=== PATIENT | female | born 2000 | race Two or more races ===

== ENCOUNTER 2020-12-04 10:27 | Outpatient (REF) | payer MEDICARE, MEDICAID, SELFPAY ==
--- NOTE | 2020-12-04 | US_ITS ---
EXAMINATION: US DIAGNOSTIC ULTRASOUND BREAST, LEFT CLINICAL INFORMATION: [place] sized nodule palpated by by patient for one week deep 9:00 retroareolar left breast. No discharge. Family history breast cancer in grandmother. Age 22. No prior breast imaging. COMPARISON: None. TECHNIQUE: Ultrasound left breast is targeted to the retroareolar and periareolar region using grayscale imaging and color Doppler without and with harmonics. Real-time comparison imaging performed retroareolar contralateral right breast. FINDINGS: There is no focal suspicious finding. There is no cystic or solid mass, architectural abnormality, duct ectasia, or edema in the soft tissue planes. Incidental convergence of ducts seen just beneath the left nipple measuring 6 mm in diameter. No intraductal mass or color flow. Results are discussed with the patient at time of visit. Patient should be managed based on the clinical impression. If clinically indicated, further evaluation may be considered with surgical consult. Decision to proceed with biopsy should be based on clinical grounds and degree of clinical concern. US/US breast LT limited IMPRESSION: No mass or architectural abnormality. ASSESSMENT: BI-RADS 2: Benign RECOMMENDATION: Patient should be managed based on the clinical impression. If clinically indicated, further evaluation may be considered with surgical consult. Decision to proceed with biopsy should be based on clinical grounds and degree of clinical concern.
== END 2020-12-04 10:28 | disposition home or self-care (01) ==
LOC: HO.MAMMO 10:27
PROVIDERS: PCP Internal Medicine; Visit Provider Internal Medicine
DX: N63.20 Unspecified lump in the left breast, unspecified quadrant (principal); Z80.3 Family history of malignant neoplasm of breast
CPT/HCPCS: 76642

== ENCOUNTER → 2021-08-20 13:54 | Outpatient (BNVA) | payer MEDICARE, MEDICAID, SELFPAY | PROVIDERS: Visit Provider Advanced Practice Midwife | DX: Z32.01 Encounter for pregnancy test, result positive (principal) | CPT/HCPCS: 99202 ==

== ENCOUNTER 2021-08-23 13:20 | Outpatient (REF) | payer MEDICARE, MEDICAID, SELFPAY ==
--- NOTE | ~2021-08-23 | US_ITS ---
EXAMINATION: OBSTETRICAL ULTRASOUND, FIRST TRIMESTER HISTORY: 21-year-old with on certain LMP LMP: Unknown COMPARISON: None TECHNIQUE: Real time transabdominal imaging with color and M-mode Doppler. FINDINGS: A single, live IUP CRL of 3.7 mm c/w 6.1wks is noted. Heart Rate: 116 beats per minute. Yolk sac seen Both maternal ovaries are seen and appear normal. GESTATIONAL AGE: 1. GA from LMP: N/A wks 2. GA from AUA: 6.1 wks ESTIMATED DATE OF DELIVERY: 1. MELCHOR from LMP: N/A 2. MELCHOR from AUA: 04/17/2022 US/US OB pelvic and transvaginal IMPRESSION: 1. A single live IUP 2. CRL corresponding to 6.1 weeks, during her an MELCHOR of 04/17/2022. This note was generated with a voice recognition program. Please excuse any errors which may have been overlooked during my review of this note. Sometimes these errors may affect the content or meaning of a given sentence.
== END 2021-08-23 13:21 | disposition home or self-care (01) ==
LOC: HO.US 13:20
PROVIDERS: Visit Provider Advanced Practice Midwife
DX: Z34.91 Encounter for supervision of normal pregnancy, unspecified, first trimester (principal)
CPT/HCPCS: 76801; 76817

== ENCOUNTER 2021-09-18 10:21 | Outpatient (REF) | payer MEDICARE, MEDICAID, SELFPAY | END 2021-09-18 10:22 | disposition home or self-care (01) | LOC: HO.LAB 10:21 | PROVIDERS: Visit Provider Advanced Practice Midwife | DX: Z34.81 Encounter for supervision of other normal pregnancy, first trimester (principal) | CPT/HCPCS: 99212 ==

== ENCOUNTER 2021-09-27 12:59 | Outpatient (REF) | payer MEDICARE, MEDICAID, SELFPAY ==
--- NOTE | ~2021-09-27 | US_ITS ---
EXAMINATION: OBSTETRICAL ULTRASOUND, FIRST TRIMESTER HISTORY: A 21-year-old at 11.1 weeks of gestation NT screening COMPARISON: 08/23/2021 TECHNIQUE: Real time transabdominal imaging with color and M-mode Doppler. FINDINGS: A single, live IUP CRL of 45.7 mm c/w 11.3wks is noted. Heart Rate: 172 beats per minute. Normal yolk sac seen. NT was 1.25.mm. NB Present The embryo appears sonographically wnl for this GA. Both maternal ovaries are seen and appear normal. GESTATIONAL AGE: 1. Established GA: 11.1 wks 2. GA from AUA: 11.3 wks ESTIMATED DATE OF DELIVERY: 1. Established MELCHOR: 04/17/2022 2. MELCHOR from AUA: 04/15/2022 US/US OB 1T nuc measure IMPRESSION: 1. A single live IUP 2. Size equals dates 3. NT of 1.25 mm MFM Consultation: I reviewed the ultrasound findings along with significance of NT measurement. The NT of less than 3mm is generally reassuring. However, the sensitivity for T21 detection is only 60%. I reviewed the availability of serum aneuploidy screening which includes cell-free DNA and placental protein based tests. I discussed the sensitivity, false-positive rate, and other limitations associated with each test. I also reviewed the availability of invasive diagnostic tests that are associated small but definite risk of miscarriage. We also reviewed the differences between screening tests and diagnostic tests. After our discussion, she opted for the First trimester screening that is based on cell-free DNA or non-invasive testing (NIPT). The result will be faxed to your office in approximately 7 days. A follow up at 18 weeks for survey has been scheduled. Thank you very much for this referral. Total time 30 minutes. The time spent was devoted to counseling the patient about the disease and diagnosis, coordinating care including reviewing her records, pertinent lab data and studies, as well as discussing diagnostic evaluation and workup, plan therapeutic interventions and future disposition of care. This includes any additional research needed to obtain further information in formulating the plan of care of this patient. This note was generated with a voice recognition program. Please excuse any errors which may have been overlooked during my review of this note. Sometimes these errors may affect the content or meaning of a given sentence.
== END 2021-09-27 13:00 | disposition home or self-care (01) ==
LOC: HO.US 12:59
PROVIDERS: Visit Provider Advanced Practice Midwife
DX: Z34.91 Encounter for supervision of normal pregnancy, unspecified, first trimester (principal); Z3A.11 11 weeks gestation of pregnancy
CPT/HCPCS: 76813

== ENCOUNTER 2021-10-01 10:20 | Outpatient (REF) | payer MEDICARE, MEDICAID, SELFPAY ==
[2021-10-02 14:30] LABS: CT PCR NOT DETECTED (Not Detect.); NG PCR NOT DETECTED (Not Detect.)
[2021-10-03 09:41] LABS: BV Int Neg Control Negative (Negative); BV Int Pos Control Positive (Positive)
== END 2021-10-01 10:21 | disposition home or self-care (01) ==
LOC: HO.LAB 10:20
PROVIDERS: Visit Provider Advanced Practice Midwife
DX: Z01.419 Encounter for gynecological examination (general) (routine) without abnormal findings (principal); O92.29 Other disorders of breast associated with pregnancy and the puerperium; O99.619 Diseases of the digestive system complicating pregnancy, unspecified trimester; L73.2 Hidradenitis suppurativa; K59.00 Constipation, unspecified; Z20.2 Contact with and (suspected) exposure to infections with a predominantly sexual mode of transmission
CPT/HCPCS: 81003; 87480; 87491; 87510; 87591; 87660; 88142; 99212

== ENCOUNTER → 2021-10-03 14:38 | Outpatient (BNVA) | payer MEDICARE, MEDICAID, SELFPAY | PROVIDERS: Visit Provider Surgery | DX: O91.211 Nonpurulent mastitis associated with pregnancy, first trimester (principal); Z3A.12 12 weeks gestation of pregnancy; Z82.49 Family history of ischemic heart disease and other diseases of the circulatory system | CPT/HCPCS: 99202 ==

== ENCOUNTER 2021-10-29 | Outpatient (REF) | payer MEDICARE, MEDICAID, SELFPAY | END 2021-10-29 00:01 | LOC: CF | PROVIDERS: Visit Provider Advanced Practice Midwife | DX: O26.02 Excessive weight gain in pregnancy, second trimester (principal); Z3A.15 15 weeks gestation of pregnancy | CPT/HCPCS: 99212 ==

== ENCOUNTER 2021-11-18 14:11 | Emergency (ER) | payer MEDICARE, MEDICAID, SELFPAY ==
[2021-11-18 15:23] VITALS: BP 119/71; PULSE 80; RESP 16; TEMP 36.7; O2SAT 99; BMI 37.5
[2021-11-18 16:14] LABS: COVID-19 Test Negative (Negative); IDNOW Serial# 9DD0AD1C
== END 2021-11-18 21:33 | disposition left against medical advice (07) ==
PROVIDERS: Emergency Provider Emergency Medicine; PCP Internal Medicine
DX: O26.892 Other specified pregnancy related conditions, second trimester (principal); R51.9 Headache, unspecified; Z3A.18 18 weeks gestation of pregnancy; Z20.822 Contact with and (suspected) exposure to COVID-19
CPT/HCPCS: 36415; 87635; 99281; 99283

== ENCOUNTER 2021-11-22 12:41 | Outpatient (REF) | payer MEDICARE, MEDICAID, SELFPAY ==
--- NOTE | ~2021-11-22 | US_ITS ---
EXAMINATION: US OBSTETRICAL CLINICAL INFORMATION: 21-year-old at 19.1 weeks of gestation Screening for anomaly High BMI COMPARISON: 09/27/2021 TECHNIQUE: Real-time transabdominal ultrasound was performed using C1-5 megahertz transducer. FINDINGS: A single, active, fetus is seen in vertex presentation. The placenta is anterior without previa, and the amniotic fluid volume is wnl. MEASUREMENTS: 1. Biparietal Diameter: 4.6 cm; 19.6 wks 2. Occipital Frontal Diameter: 5.95 cm 3. Head Circumference: 16.9 cm; 19.5 wks 4. Abdominal Circumference: 14.1 cm; 19.4 wks 5. Femur Length: 3.1 cm; 19.6 wks 6. Humerus Length: 2.9 cm; 19.3 wks 7. Tibia Length: 2.7 cm; 19.6 wks 8. Ulna Length: 2.6 cm; 19.4 wks 9. Lateral ventricle: 0.6 cm 10. Cerebellum: 1.85 cm; 19.2 wks 11. Cisterna Magna: 0.5 cm 12. Nuchal Fold: 4.4 mm 13. Heart Rate: 150 beats per minute Rt ovary: normal Lt ovary: normal Cervical length 4.3 cm on T/A. GESTATIONAL AGE: 1. Established GA: 19.1 wks 2. GA from [facility]: 19.6 wks ESTIMATED DATE OF DELIVERY: 1. Established MELCHOR: 04/17/2022 2. MELCHOR from [facility]: 04/12/2022 ANATOMY: The visualized anatomy includes but not limited to: 1. Cranium: Normal 2. Intracranial anatomy: cavum septum pellucidi, lateral ventricles, choroid plexus, cerebellum, posterior fossa, third and fourth ventricles. 3. face: orbits, lip/palate, profile, nasal bone 4. Heart: four-chamber view of the heart, ventricular septum, foramen ovale, pulmonary vein, left and right outflow tracts, three-vessel view, 3 vessel trachea view, aortic and ductal arches, situs.. 5. Diaphragm: Normal 6. Abdominal wall: Normal 7. Cord Insertion: Normal 8. Spine: Cervical, thoracic, lumbar, sacral. 9. Stomach: Normal size and shape 10. Right Kidney: Normal 11. Left Kidney: Normal 12. 3 vessel cord: Normal 13. Upper extremity: Open hands, fifth digit. 14. Lower extremity: Tibia, fibula, bilateral feet. 15. Bladder: Normal 16. Genitalia: Male, patient aware US/US OB /maternal detail IMPRESSION: 1. Single, living, intrauterine with appropriate biometry. 2. Normal survey DISCUSSION: I reviewed today's ultrasound findings. We discussed the limitations of ultrasound in diagnosing aneuploidy and other congenital abnormalities. I reviewed the differences between screening test and diagnostic test. Amniocentesis was discussed and declined. She was informed that the baseline incidence of congenital abnormalities is approximately 3-5%. Not all these conditions are diagnosable in utero. RECOMMENDATIONS: 1. Follow-up when necessary Thank you for allowing me to participate in her care. Total time 30 minutes. The time spent was devoted to counseling the patient about the disease and diagnosis, coordinating care including reviewing her records, pertinent lab data and studies, as well as discussing diagnostic evaluation and workup, plan therapeutic interventions and future disposition of care. This includes any additional research needed to obtain further information in formulating the plan of care of this patient. This note was generated with a voice recognition program. Please excuse any errors which may have been overlooked during my review of this note. Sometimes these errors may affect the content or meaning of a given sentence.
== END 2021-11-22 12:42 | disposition home or self-care (01) ==
LOC: HO.US 12:41
PROVIDERS: Visit Provider Advanced Practice Midwife
DX: Z34.92 Encounter for supervision of normal pregnancy, unspecified, second trimester (principal)
CPT/HCPCS: 76811

== ENCOUNTER 2021-12-31 10:28 | Outpatient (REF) | payer MEDICARE, MEDICAID, SELFPAY ==
[2021-12-31 12:58] LABS: Hematocrit 34.1 % (37.0-47.0); Hemoglobin 11.1 g/dl (12.0-16.0); Mean Corpuscular HGB Conc 32.6 g/dl (31.0-35.0); Mean Corpuscular Hemoglobin 32.1 pg (27.0-33.0); Mean Corpuscular Volume 98.6 fL (80.0-98.0); Mean Platelet Volume 11.8 fL (9.4-12.3); Platelet Count 198 X10*3/uL (160-400); Red Blood Count 3.46 X10*6/uL (4.20-5.50); Red Cell Distribution Width 12.5 % (11.0-16.0); White Blood Count 10.1 X10*3/uL (4.8-10.8)
[2021-12-31 13:13] LABS: Glucose 1 Hour PP 50gm Dose 88 mg/dL (60-140)
[2021-12-31 13:17] LABS: Amphetamine Screen Urine Not Detected (Not Detect); Barbiturates, Urine Not Detected (Not Detect); Benzodiazepines Screen Urine Not Detected (Not Detect); Cannabinoid Screen Urine Not Detected (Not Detect); Cocaine Screen Urine Not Detected (Not Detect); Fentanyl, urine Not Detected (Not Detect); Opiate Screen Urine Not Detected (Not Detect); Phencyclidine Screen Urine Not Detected (Not Detect)
[2022-01-01 03:48] LABS: HIV AB/AG Nonreactive (Nonreactive); HIV Num 1 0.08 S/CO (0.00-0.99); Syphilis Screen Nonreactive (Nonreactive)
[2022-01-01 04:02] LABS: HBsAGNum1 0.19 S/CO (0.00-0.99); Hepatitis B Surface Antigen Negative (Negative); ~Hepatitis C Antibody Nonreactive (Nonreactive)
[2022-01-02 01:11] LABS: Rubella IgG Antibody 4.87 Index
[2022-01-02 01:46] LABS: Varicella IgG Antibody <135.00 index
== END 2021-12-31 10:29 | disposition home or self-care (01) ==
LOC: HO.LAB 10:28
PROVIDERS: PCP Internal Medicine; Visit Provider Advanced Practice Midwife
DX: Z34.92 Encounter for supervision of normal pregnancy, unspecified, second trimester (principal); Z3A.24 24 weeks gestation of pregnancy
CPT/HCPCS: 80307; 85027; 86762; 86780; 86787; 86803; 86850; 86900; 86901; 87086; 87340; 87389; 99212

== ENCOUNTER → 2022-01-28 13:43 | Outpatient (BNVA) | payer MEDICARE, MEDICAID, SELFPAY | PROVIDERS: PCP Internal Medicine; Visit Provider Obstetrics & Gynecology | DX: Z34.83 Encounter for supervision of other normal pregnancy, third trimester (principal) | CPT/HCPCS: 99212 ==

== ENCOUNTER → 2022-03-07 10:49 | Outpatient (BNVA) | payer MEDICARE, MEDICAID, SELFPAY | PROVIDERS: Visit Provider Advanced Practice Midwife | DX: Z13.89 Encounter for screening for other disorder (principal) | CPT/HCPCS: 81003; 99212 ==

== ENCOUNTER 2022-03-07 12:27 | Outpatient (REF) | payer MEDICARE, MEDICAID, SELFPAY ==
--- NOTE | ~2022-03-07 | US_ITS ---
EXAMINATION: OBSTETRICAL ULTRASOUND, Follow up HISTORY: 21-year-old at the 34.1 weeks of gestation Size date discrepancy High BMI COMPARISON: 11/22/2021 TECHNIQUE: Real time transabdominal imaging with color and M-mode Doppler. PRESENTATION: Vertex PLACENTA LOCATION: Anterior without previa AMNIOTIC FLUID: KRYSTLE 13.7 cm 143 MEASUREMENTS: 1. Biparietal Diameter: 8.7 cm; 35.0 wks 2. Head Circumference: 32.1 cm; 36.2 wks 3. Abdominal Circumference: 30.3 cm; 34.3 wks 4. Femur Length: 6.6 cm; 34.1 wks 5. Heart Rate: 143 beats per minute WEIGHT: EFW: 2437 grams (5 lbs 6 oz) -- 54 %. BIOPHYSICAL PROFILE: Motion: 2 Tone: 2 Breathin Amniotic Fluid: 2 Total score: 8/8 GESTATIONAL AGE: 1. Established GA: 34.1 wks 2. GA from AUA: 35.0 wks ESTIMATED DATE OF DELIVERY: 1. Established MELCHOR: 04/17/2022 2. MELCHOR from AUA: 04/11/2022 US/US OB follow up IMPRESSION: 1. A single active fetus is in vertex presentation 2. Size equals dates 3. Reassuring BPP and KRYSTLE Thank you very much for this referral. This note was generated with a voice recognition program. Please excuse any errors which may have been overlooked during my review of this note. Sometimes these errors may affect the content or meaning of a given sentence.
== END 2022-03-07 12:28 | disposition home or self-care (01) ==
LOC: HO.XRAY 12:27
PROVIDERS: PCP Internal Medicine; Visit Provider Advanced Practice Midwife
DX: O99.213 Obesity complicating pregnancy, third trimester (principal); O99.013 Anemia complicating pregnancy, third trimester; O36.63X0 Maternal care for excessive fetal growth, third trimester, not applicable or unspecified; Z3A.34 34 weeks gestation of pregnancy
CPT/HCPCS: 76816; 81003; 99212

== ENCOUNTER → 2022-03-11 10:02 | Outpatient (BNVA) | payer MEDICARE, MEDICAID, SELFPAY | PROVIDERS: PCP Internal Medicine; Visit Provider Advanced Practice Midwife | DX: O99.213 Obesity complicating pregnancy, third trimester (principal); E66.01 Morbid (severe) obesity due to excess calories; O47.03 False labor before 37 completed weeks of gestation, third trimester; Z3A.34 34 weeks gestation of pregnancy | CPT/HCPCS: 59025; 81003; 99212 ==

== ENCOUNTER 2022-03-14 09:04 | Outpatient (REF) | payer MEDICARE, MEDICAID, SELFPAY ==
--- NOTE | ~2022-03-14 | US_ITS ---
EXAMINATION: US OBSTETRICAL (BIOPHYSICAL PROFILE) CLINICAL INFORMATION: 21-year-old at the 35.1 weeks of gestation High BMI COMPARISON: 03/07/2022 TECHNIQUE: Biophysical profile is performed over 30 minutes with assessment of breathing, gross body movement, tone, and qualitative amniotic fluid volume. FINDINGS: POSITION: Cephalic PLACENTA: Anterior without previa AMNIOTIC FLUID INDEX: 8.8 cm CARDIAC ACTIVITY: 150 beats per minute BIOPHYSICAL PROFILE: Motion: 2 Tone: 2 Breathin Amniotic Fluid: 2 The total biophysical score is 8/8 US/US OB biophysical profile IMPRESSION: 1. Single intrauterine gestation in vertex position. 2. Reassuring BPP and KRYSTLE Thank you for allowing me to participate in her care. This note was generated with a voice recognition program. Please excuse any errors which may have been overlooked during my review of this note. Sometimes these errors may affect the content or meaning of a given sentence.
== END 2022-03-14 09:05 | disposition home or self-care (01) ==
LOC: HO.US 09:04
PROVIDERS: Visit Provider Advanced Practice Midwife
DX: O99.213 Obesity complicating pregnancy, third trimester (principal); E66.01 Morbid (severe) obesity due to excess calories; Z3A.35 35 weeks gestation of pregnancy
CPT/HCPCS: 76819

== ENCOUNTER 2022-03-21 11:13 | Outpatient (REF) | payer MEDICARE, MEDICAID, SELFPAY ==
[2022-03-21 17:21] LABS: CT PCR NOT DETECTED (Not Detect.); NG PCR NOT DETECTED (Not Detect.)
== END 2022-03-21 11:14 | disposition home or self-care (01) ==
LOC: HO.LAB 11:13
PROVIDERS: Advanced Practice Midwife; PCP Internal Medicine; Visit Provider Obstetrics & Gynecology
DX: O99.820 Streptococcus B carrier state complicating pregnancy (principal); O99.213 Obesity complicating pregnancy, third trimester; E66.01 Morbid (severe) obesity due to excess calories; Z3A.36 36 weeks gestation of pregnancy
CPT/HCPCS: 87081; 87491; 87591; 99212

== ENCOUNTER 2022-03-28 10:08 | Outpatient (REF) | payer MEDICARE, MEDICAID, SELFPAY ==
--- NOTE | ~2022-03-28 | US_ITS ---
EXAMINATION: OBSTETRICAL ULTRASOUND, Follow up HISTORY: 21 year [id number] at the 37.1 weeks of gestation Size date discrepancy High BMI COMPARISON: 03/14/2022 TECHNIQUE: Real time transabdominal imaging with color and M-mode Doppler. PRESENTATION: Vertex PLACENTA LOCATION: Anterior without previa AMNIOTIC FLUID: KRYSTLE 12.6 cm MEASUREMENTS: 1. Biparietal Diameter: 9.4 cm; 38.2 wks 2. Head Circumference: 33.7 cm; 38.5 wks 3. Abdominal Circumference: 32.4 cm; 36.3 wks 4. Femur Length: 6.8 cm; 35.1 wks 5. Heart Rate: 139 beats per minute WEIGHT: EFW: 2940 grams (6 lbs 8 oz) -- 38 %. BIOPHYSICAL PROFILE: Motion: 2 Tone: 2 Breathin Amniotic Fluid: 2 Total score: 8/8 GESTATIONAL AGE: 1. Established GA: 37.1 wks 2. GA from AUA: 37.1 wks ESTIMATED DATE OF DELIVERY: 1. Established MELCHOR: 04/17/2022 2. MELCHOR from AUA: 04/17/2022 US/US OB biophysical profile IMPRESSION: 1. A single active fetus is in vertex presentation 2. Size equals dates 3. Normal KRYSTLE and reassuring BPP Thank you very much for this referral. This note was generated with a voice recognition program. Please excuse any errors which may have been overlooked during my review of this note. Sometimes these errors may affect the content or meaning of a given sentence.
== END 2022-03-28 10:09 | disposition home or self-care (01) ==
LOC: HO.US 10:08
PROVIDERS: Visit Provider Advanced Practice Midwife
DX: O26.00 Excessive weight gain in pregnancy, unspecified trimester (principal); E66.01 Morbid (severe) obesity due to excess calories; Z68.41 Body mass index [BMI] 40.0-44.9, adult
CPT/HCPCS: 76819

== ENCOUNTER → 2022-04-01 12:46 | Outpatient (BNVA) | payer MEDICARE, MEDICAID, SELFPAY | PROVIDERS: PCP Internal Medicine; Visit Provider Advanced Practice Midwife | DX: O99.213 Obesity complicating pregnancy, third trimester (principal); E66.01 Morbid (severe) obesity due to excess calories; Z3A.37 37 weeks gestation of pregnancy | CPT/HCPCS: 59025; 90471; 90715; 99212 ==

== ENCOUNTER 2022-04-04 11:42 | Outpatient (REF) | payer MEDICARE, MEDICAID, SELFPAY ==
--- NOTE | ~2022-04-04 | US_ITS ---
EXAMINATION: US OBSTETRICAL (BIOPHYSICAL PROFILE) CLINICAL INFORMATION: 21-year-old at 38.1 weeks of gestation High BMI COMPARISON: 03/28/2022 TECHNIQUE: Biophysical profile is performed over 30 minutes with assessment of breathing, gross body movement, tone, and qualitative amniotic fluid volume. FINDINGS: POSITION: Cephalic PLACENTA: Anterior without previa AMNIOTIC FLUID INDEX: 13 cm CARDIAC ACTIVITY: 153 beats per minute BIOPHYSICAL PROFILE: Motion: 2 Tone: 2 Breathin Amniotic Fluid: 2 The total biophysical score is 8/8 US/US OB biophysical profile IMPRESSION: 1. Single intrauterine gestation in vertex position. 2. Reassuring BPP and KRYSTLE Thank you for allowing me to participate in her care. This note was generated with a voice recognition program. Please excuse any errors which may have been overlooked during my review of this note. Sometimes these errors may affect the content or meaning of a given sentence.
== END 2022-04-04 11:43 | disposition home or self-care (01) ==
LOC: HO.US 11:42
PROVIDERS: Visit Provider Advanced Practice Midwife
DX: O99.213 Obesity complicating pregnancy, third trimester (principal); E66.01 Morbid (severe) obesity due to excess calories; Z3A.38 38 weeks gestation of pregnancy
CPT/HCPCS: 76819

== ENCOUNTER → 2022-04-08 13:04 | Outpatient (BNVA) | payer MEDICARE, MEDICAID, SELFPAY | PROVIDERS: PCP Internal Medicine; Visit Provider Advanced Practice Midwife | DX: O99.213 Obesity complicating pregnancy, third trimester (principal); E66.01 Morbid (severe) obesity due to excess calories; Z3A.38 38 weeks gestation of pregnancy | CPT/HCPCS: 59025; 99212 ==

== ENCOUNTER → 2022-04-09 10:40 | Outpatient (BNVA) | payer MEDICARE, MEDICAID, SELFPAY | PROVIDERS: Visit Provider Advanced Practice Midwife | DX: O99.213 Obesity complicating pregnancy, third trimester (principal); E66.01 Morbid (severe) obesity due to excess calories; Z3A.38 38 weeks gestation of pregnancy | CPT/HCPCS: 99212 ==

== ENCOUNTER 2022-04-11 12:56 | Outpatient (REF) | payer MEDICARE, MEDICAID, SELFPAY ==
--- NOTE | ~2022-04-11 | US_ITS ---
EXAMINATION: US OBSTETRICAL (BIOPHYSICAL PROFILE) CLINICAL INFORMATION: Morbid obesity. COMPARISON: Ultrasound OB 04/04/2022. TECHNIQUE: Ultrasound of the pelvis is performed. Biophysical profile is performed over 30 minutes with assessment of breathing, gross body movement, tone, and qualitative amniotic fluid volume. Each matrix is scored 0 or 2, depending if the metric is present. Maximum total score possible is 8. Examination is not intended to assess for anomalies. FINDINGS: POSITION: Vertex. PLACENTA: Anterior. AMNIOTIC FLUID INDEX: 16.2 cm CARDIAC ACTIVITY: 144 beats per minute BIOPHYSICAL PROFILE: Motion: 2 Tone: 2 Breathin Amniotic Fluid: 2 Total score: 8 ANATOMY: There is visualization of bilateral kidneys, ureter and bladder, stomach and a four-chamber heart. US/US OB biophysical profile IMPRESSION: 1. Single intrauterine gestation in vertex position with anterior placenta. 2. Total biophysical score is 8 (scale 0-8). 3. Amniotic fluid index 16.2 cm. 4. cardiac activity 144 beats per minute. No major change from the last exam 04/04/2022.
== END 2022-04-11 12:57 | disposition home or self-care (01) ==
LOC: HO.US 12:56
PROVIDERS: Visit Provider Advanced Practice Midwife
DX: E66.01 Morbid (severe) obesity due to excess calories (principal); Z68.41 Body mass index [BMI] 40.0-44.9, adult
CPT/HCPCS: 76819

== ENCOUNTER 2022-07-31 12:09 | Emergency (ER) | payer MEDICARE, MEDICAID, SELFPAY | END 2022-07-31 14:17 | disposition left against medical advice (07) | PROVIDERS: Emergency Provider Emergency Medicine | DX: N64.4 Mastodynia (principal) ==

== ENCOUNTER 2022-08-03 06:48 | Emergency (ER) | payer OTHER, SELFPAY ==
--- NOTE | ~2022-08-03 | CT_ITS ---
EXAMINATION: CT ABDOMEN AND PELVIS WITH CONTRAST CLINICAL INFORMATION: The upper quadrant pain. Status post surgery. Restaging stone? Abscess? COMPARISON: None TECHNIQUE: Multidetector volumetric images were obtained from the superior aspect of the liver through the pubic symphysis following administration 85 mL of Omnipaque 350 intravenous contrast. Sagittal and coronal reformatted images were obtained on the technologist's workstation. Oral contrast: No This CT examination was performed using dose optimization techniques as appropriate, variously including the following: *Automated exposure control *Adjustment of mA and/or kV according to patient size (this includes techniques or standardized protocols for targeted exams where dose is matched to indication/reason for exam; i.e. extremities or head) *Use of iterative reconstruction technique DLP: 1108 mGy-cm FINDINGS: LUNG BASES: The visualized lung bases are unremarkable. LIVER, GALLBLADDER, AND BILIARY TREE: The liver is normal in size, shape, and attenuation. No focal hepatic lesion or biliary ductal dilatation is present. Gallbladder not seen, presumably surgically absent. No biliary ductal dilatation. Common bile duct normal in caliber with no choledocholithiasis seen. PANCREAS: Unremarkable. SPLEEN: Unremarkable. ADRENAL GLANDS: Unremarkable. KIDNEYS AND URETERS: The kidneys are normal in size, shape, and attenuation. No hydronephrosis, hydroureter, or calculi seen. No perinephric stranding. BLADDER: Unremarkable. GASTROINTESTINAL TRACT: The small and large bowel are unremarkable. The appendix is unremarkable. ABDOMINAL WALL: There is diastases of the rectus abdominis with a small fat-containing umbilical hernia. LYMPH NODES: Normal sized retroperitoneal and right lower quadrant lymph nodes are present. No pathologically enlarged lymphadenopathy. VASCULAR: Unremarkable. PELVIC VISCERA: The uterus and adnexa are unremarkable. OSSEOUS STRUCTURES: Unremarkable. CT/CT abdomen pelvis w IV con IMPRESSION: No acute CT findings.. Gallbladder not seen, possibly surgically absent. No biliary ductal dilatation. No fluid collections to suggest an abscess. Fleischner guidelines were followed.
[2022-08-03 07:30] VITALS: BP 131/63; PULSE 82; RESP 18; TEMP 37.2; O2SAT 98; BMI 43.2
--- NOTE | 2022-08-03 10:21 | ED.ABDPAIN ---
HPI - Abdominal Pain General Chief Complaint: Abdominal Pain Stated Complaint: abd pain Time Seen by Provider: 08/03/22 10:09 Source: patient Mode of arrival: ambulatory Limitations: no limitations History of Present Illness HPI narrative: 22-year-old female presents to ED for right upper quadrant pain that occurred 3 days ago. Patient states since having surgery 3 months ago she has had intermittent right upper quadrant pain. Patient states she had her gallstones removed 3 months ago. Patient states last episode of right upper quadrant pain was 3 days ago with 1 episode of vomiting that was yellow. Patient states since then she has been asymptomatic. Patient presently denies any pain. Patient denies any chest pain, shortness of breath, pleurisy, leg swelling, calf pain, coughing up blood, fever, or chills. Related Data Home Medications Medication Instructions Recorded Confirmed prenat.vits,guillermo,[id number] 1 tab PO BEDTIME 01/28/22 03/21/22 Previous Rx's Medication Instructions Recorded aspirin 81 mg chewable tablet 2 tab PO DAILY #90 tabs 12/31/21 ferrous sulfate 325 mg (65 mg 325 mg PO DAILY #30 tabs 03/07/22 iron) tablet cephalexin 500 mg capsule 500 mg PO QID 7 days #28 caps 08/03/22 Allergies Allergy/AdvReac Type Severity Reaction Status Date / Time No Known Allergies Allergy Verified 08/03/22 07:30 [No Known Allergies*] Review of Systems Review of Systems Right upper quadrant pain 2 days ago. Patient asymptomatic presently. Yes all other systems are reviewed and are negative PMFSH Past Medical History Medical History (Updated 08/03/22 @ 12:42 by JUAN RAMON Davis) Cystic breast Encounter for cholecystectomy Morbid obesity with BMI of 40.0-44.9, adult Obesity Surgical History History of removal of cyst Family History Family History Mother HTN (hypertension) Lupus (systemic lupus erythematosus) Maternal Grandmother No problems noted. Father HTN (hypertension) CVA (cerebral vascular accident) Social History Social History Household Members: Children Alcohol intake: never Patient Tobacco Use Status: Never used Tobacco Advance Directives: No Advance Directives Information Provided: No Gender identity: Female Physical Exam ED Vital Signs: Vital Signs - 24 hr 08/03/22 07:30 Temperature 98.9 F Pulse Rate 82 Respiratory Rate 18 Blood Pressure 131/63 Pulse Oximetry 98 Oxygen Delivery Method Room Air BMI result Body Mass Index 43.2 Const General: cooperative, healthy appearing, comfortable, no acute distress, well developed, alert, awake and Physically active Orientation/consciousness: oriented to person, oriented to place, oriented to time and patient oriented x3 HENMT Head: Yes normal to inspection, Yes No palpable skull fracture present, Yes normocephalic, Yes atraumatic and No abrasion Eyes General: appearance normal, both eyes and all related structures Neck Neck: Yes normal visual inspection, Yes full ROM, Yes no lymphadenopathy, Yes no meningeal signs, Yes trachea midline, Yes supple, No anterior neck swelling and No tender Chest Chest palpation & inspection: normal inspection of the chest and normal palpation of entire chest wall Resp Effort & Inspection: normal respiratory effort and able to speak in complete sentences Auscultation: clear to auscultation bilaterally Cardio Jugular venous distension: no JVD Heart sounds: S1 normal heart sound present and S2 normal heart sound present GI Inspection: Yes normal to inspection and No abdominal wall ecchymosis Palpation (GI): Soft to palpation, not firm, nontender, no guarding and not rigid General: No CVA tenderness and Yes no CVA tenderness Back/Spine/Pelvis Back: no CVA tenderness, No CVA tenderness and No back tenderness Skin General skin exam: no rashes or lesions noted and elasticity normal Neuro General: oriented to person, oriented to place, oriented to time, patient oriented x3, gait normal, Normal light touch and pain sensation, no meningeal signs, no focal motor deficits and CN's II-XI intact bilaterally Extrem General: Yes normal to inspection and Yes full ROM Psych Appearance: grossly normal, well kempt and not disheveled Course Course Course Narrative: Patient presently asymptomatic. Patient states she last had right upper quadrant pain 2 days ago. Patient came to ED to be evaluated. Will do basic labs. Reevaluation(s) Reevaluation #1: Patient's labs came back normal. UA shows bunch of blood and leuk esterase. Final CT scan came back normal. Patient states she is on her menstruation but due to leuko esterase was discharged with antibiotics although asymptomatic. Patient is safe for discharge. Time: 12:39 MDM - Abdominal Pain MDM Narrative Medical decision making narrative: UTI Lab Data Result diagrams: 08/03/22 10:08/03/22 10: Labs: Lab Results 08/03/22 08/03/22 08/03/22 Range/Units 10: 10: 11:42 WBC 6.4 (4.8-10.8) X10*3/uL RBC 3.88 L (4.20-5.50) X10*6/uL Hgb 10.5 L (12.0-16.0) g/dl Hct 33.9 L (37.0-47.0) % MCV 87.4 (80.0-98.0) fL MCH 27.1 (27.0-33.0) pg MCHC 31.0 (31.0-35.0) g/dl RDW 14.6 (11.0-16.0) % Plt Count 270 D (160-400) X10*3/uL MPV 10.9 (9.4-12.3) fL Immature Gran % (Auto) 0.2 (0.0-0.4) % Neut % (Auto) 60.6 (45-73) % Lymph % (Auto) 30.3 (20-40) % [place] % (Auto) 7.2 (2-11) % Eos % (Auto) 1.1 (0-4) % Baso % (Auto) 0.6 (0-2) % Lymph # (Auto) 1.9 (1.2-4.9) X10*3/uL [place] # (Auto) 0.5 (0.1-1.2) X10*3/uL Eos # (Auto) 0.1 (0.0-0.4) X10*3/uL Baso # (Auto) 0.0 (0.0-0.2) X10*3/uL Abs Immat Gran (auto) 0.01 (0.00-0.03) X10*3/uL Absolute Neuts (auto) 3.9 (2.0-8.3) x10*3/uL Absolute Nucleated RBC 0.000 (0.0-0.012) X10*3/uL Nucleated RBC % (auto) 0.0 (0.0-0.2) /100WBC Sodium 139 (135-145) mmol/L Potassium 4.4 (3.3-5.1) mmol/L Chloride 105 (96-108) mmol/L Carbon Dioxide 24 (22-29) mmol/L Anion Gap 14 (12-20) BUN 13 (9-16) mg/dL Creatinine 0.66 (0.5-1.4) mg/dL Estim Creat Clear Calc 168.8 Estimated GFR > 60 Random Glucose 88 (60-115) mg/dL Calcium 9.2 (8.4-10.2) mg/dL Total Bilirubin 0.4 (0.0-1.0) mg/dL AST 24 (5-31) U/L ALT 22 (0-31) U/L Alkaline Phosphatase 109 (39-117) U/L Total Protein 6.9 (6.5-8.0) g/dL Albumin 4.0 (3.5-5.0) g/dL Lipase 31 (8-78) U/L Beta HCG, Quant < 2 mIU/mL Urine Color [place] A Urine Appearance Clear Urine pH 8.0 (5.0-9.0) Ur Specific [place] 1.015 (1.005-1.025) Urine Protein Negative (Neg-Trace) mg/dL Urine Glucose (UA) Negative (Negative) mg/dL Urine Ketones Negative (Negative) mg/dL Urine Blood Large (3+) H (Negative) Urine Nitrite Negative (Negative) Ur Leukocyte Esterase Moderate (2+) H (Negative) Urine RBC >20 H (0-2) /HPF Urine WBC 11-20 H (0-5) /HPF Ur Squamous Epith Cells 0-2 (0-2) /HPF Urine Bacteria None Seen (None Seen) Hyaline Casts 0-2 (0-2) /LPF Discharge Plan Discharge Clinical Impression: Abdominal pain, UTI (urinary tract infection) Patient Disposition: Home, Self-Care Additional Instructions: Your CT scan came back normal. Your labs came back normal. Urine shows leukoesteryase which may indicate UTI. You will be discharged with antibiotics. Please follow-up with primary care provider. Return to the ED immediately for any worsening abdominal pain, vomiting, vomiting blood, flank pain, fever, chills, chest pain, shortness of breath, chest pain/shortness of breath on inspiration, leg swelling, calf pain, hematuria, dysuria, or any other concerning symptoms. Prescriptions: New cephalexin 500 mg capsule 500 mg PO QID 7 Days Qty: 28 0RF No Action aspirin 81 mg tablet,chewable 2 tab PO DAILY Qty: 90 3RF prenat.vits,guillermo,[id number] Tablet 1 tab PO BEDTIME ferrous sulfate 325 mg (65 mg iron) tablet 325 mg PO DAILY Qty: 30 5RF Stand Alone Forms: Work/School Release Interventions: ED Discharge Assessment Last Done: 08/03/22 12:48 Discharge Date/Time: 08/03/22 12:49 Print Language: Wolof
[2022-08-03 10:26] LABS: MANUAL DIFF FLAG NO
[2022-08-03 10:27] LABS: Basophils Percent Auto 0.6 % (0-2); Eosinophils Absolute Auto 0.1 X10*3/uL (0.0-0.4); Eosinophils Percent Auto 1.1 % (0-4); Hematocrit 33.9 % (37.0-47.0); Hemoglobin 10.5 g/dl (12.0-16.0); Imm Gran Abs Auto 0.01 X10*3/uL (0.00-0.03); Imm Gran Pct Auto 0.2 % (0.0-0.4); Lymphocytes Absolute Auto 1.9 X10*3/uL (1.2-4.9); Lymphocytes Percent Auto 30.3 % (20-40); Mean Corpuscular Hemoglobin 27.1 pg (27.0-33.0); Mean Corpuscular Volume 87.4 fL (80.0-98.0); Mean Platelet Volume 10.9 fL (9.4-12.3); Monocytes Absolute Auto 0.5 X10*3/uL (0.1-1.2); Monocytes Percent Auto 7.2 % (2-11); Neutrophils Absolute Auto 3.9 x10*3/uL (2.0-8.3); Neutrophils Percent Auto 60.6 % (45-73); Platelet Count 270 X10*3/uL (160-400); Red Blood Count 3.88 X10*6/uL (4.20-5.50); Red Cell Distribution Width 14.6 % (11.0-16.0); White Blood Count 6.4 X10*3/uL (4.8-10.8)
[2022-08-03 11:11] LABS: Alanine Aminotransferase 22 U/L (0-31); Alkaline Phosphatase 109 U/L (39-117); Anion Gap 14 (12-20); Aspartate Amino Transferase 24 U/L (5-31); Bilirubin Total 0.4 mg/dL (0.0-1.0); Blood Urea Nitrogen 13 mg/dL (9-16); Calcium 9.2 mg/dL (8.4-10.2); Carbon Dioxide 24 mmol/L (22-29); Chloride 105 mmol/L (96-108); Creatinine Clr Calc Pharmacy 168.8; Estimated Glomerular Filt Rate > 60; Glucose Random 88 mg/dL (60-115); Lipase 31 U/L (8-78); Potassium 4.4 mmol/L (3.3-5.1); Sodium 139 mmol/L (135-145); Total Protein 6.9 g/dL (6.5-8.0)
[2022-08-03 11:17] LABS: HCG Quantitative < 2 mIU/mL
[2022-08-03] MEDS: iohexoL 350 MG/ML 75 ML INFUS..BTL 85 ML IV (11:55)
[2022-08-03 11:58] LABS: Appearance Urine Clear; Color Urine Orange; Glucose Urine UA Negative (Negative); Leukocyte Esterase Urine Moderate (2+) (Negative); Nitrite Urine Negative (Negative); Specific Gravity - Urine 1.015 (1.005-1.025); UMIC TRIGGER UACC YES; Urine Blood Large (3+) (Negative); Urine Ketones Negative (Negative); Urine Protein Negative (Neg-Trace)
[2022-08-03 12:03] LABS: Bacteria Urine None Seen (None Seen); Hyaline Casts Urine 0-2 /LPF (0-2); RBC Urine >20 /HPF (0-2); Squamous Epithelial Cell Urine 0-2 /HPF (0-2); UACC Culture Trigger YES
== END 2022-08-03 12:49 | disposition home or self-care (01) ==
PROVIDERS: Physician Assistant; Emergency Provider Emergency Medicine; PCP Internal Medicine
DX: N39.0 Urinary tract infection, site not specified (principal); R10.11 Right upper quadrant pain; Z79.899 Other long term (current) drug therapy
CPT/HCPCS: 36415; 74177; 80053; 81001; 83690; 84702; 85025; 87086; 99282; 99284; Q9967

== ENCOUNTER 2023-06-04 11:36 | Outpatient (REF) | payer OTHER, SELFPAY | END 2023-06-04 11:37 | disposition home or self-care (01) | LOC: HO.HOSX 11:36 | PROVIDERS: Visit Provider Orthopaedic Surgery | DX: Z13.89 Encounter for screening for other disorder (principal) ==

== ENCOUNTER 2023-06-05 11:01 | Outpatient (REF) | payer OTHER, SELFPAY ==
--- NOTE | ~2023-06-05 | XR_ITS ---
EXAMINATION: RIGHT KNEE LEFT KNEE CLINICAL INFORMATION: Pain COMPARISON: None. TECHNIQUE: 3 views right knee 3 views left knee FINDINGS: Bilateral knees: No fracture, focal lesion or periosteal new bone. The joint spaces are preserved. Trace proliferative change involving the lateral margin of each patella. There may be a trace amount of fluid in the right suprapatellar bursa XR/XR knee RT 3V IMPRESSION: No acute fracture or subluxation. Trace amount of fluid.
--- NOTE | ~2023-06-05 | XR_ITS ---
EXAMINATION: RIGHT KNEE LEFT KNEE CLINICAL INFORMATION: Pain COMPARISON: None. TECHNIQUE: 3 views right knee 3 views left knee FINDINGS: Bilateral knees: No fracture, focal lesion or periosteal new bone. The joint spaces are preserved. Trace proliferative change involving the lateral margin of each patella. There may be a trace amount of fluid in the right suprapatellar bursa XR/XR knee LT 3V IMPRESSION: No acute fracture or subluxation. Trace amount of fluid.
[2023-06-05 13:55] LABS: MANUAL DIFF FLAG NO
[2023-06-05 14:04] LABS: Basophils Absolute Auto 0.1 X10*3/uL (0.0-0.2); Basophils Percent Auto 0.7 % (0-2); Eosinophils Percent Auto 0.3 % (0-4); Hematocrit 37.7 % (37.0-47.0); Hemoglobin 12.1 g/dl (12.0-16.0); Imm Gran Abs Auto 0.01 X10*3/uL (0.00-0.03); Imm Gran Pct Auto 0.1 % (0.0-0.4); Lymphocytes Absolute Auto 0.8 X10*3/uL (1.2-4.9); Lymphocytes Percent Auto 11.1 % (20-40); Mean Corpuscular HGB Conc 32.1 g/dl (31.0-35.0); Mean Corpuscular Hemoglobin 28.9 pg (27.0-33.0); Mean Platelet Volume 12.2 fL (9.4-12.3); Monocytes Absolute Auto 0.4 X10*3/uL (0.1-1.2); Monocytes Percent Auto 5.6 % (2-11); Neutrophils Absolute Auto 5.8 x10*3/uL (2.0-8.3); Neutrophils Percent Auto 82.2 % (45-73); Platelet Count 240 X10*3/uL (160-400); Red Blood Count 4.19 X10*6/uL (4.20-5.50); Red Cell Distribution Width 13.5 % (11.0-16.0)
[2023-06-05 14:43] LABS: Rheumatoid Factor 26.6 IU/mL (<15.0)
[2023-06-05 14:49] LABS: Erythrocyte Sedimentation Rate 16 MM/HR (0-20); Uric Acid 4.6 mg/dL (2.4-5.7)
[2023-06-11 11:04] LABS: Anti Nuclear Antibody Screen NEGATIVE (NEGATIVE)
== END 2023-06-05 11:02 | disposition home or self-care (01) ==
LOC: HO.HOSX 11:01
PROVIDERS: PCP Hospitalist; Visit Provider Orthopaedic Surgery
DX: M25.562 Pain in left knee (principal); S83.241D Other tear of medial meniscus, current injury, right knee, subsequent encounter; X58.XXXD Exposure to other specified factors, subsequent encounter; Y93.9 Activity, unspecified; Y92.9 Unspecified place or not applicable; Y99.9 Unspecified external cause status; Z82.61 Family history of arthritis; Z79.899 Other long term (current) drug therapy
CPT/HCPCS: 36415; 73562; 84550; 85025; 85652; 86038; 86431; 99202

== ENCOUNTER 2023-06-05 11:01 | Outpatient (AMB) | payer OTHER, SELFPAY ==
--- NOTE | 2023-06-05 11:16 | A.OFFVIS_ITS ---
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 She describes her pains as sharp in nature. She did injure both of her knees approximately 1 year ago when she tripped over a curb and fell directly onto her knees. Since that time her symptoms have gotten worse in spite of continued non operative treatments. The patient states that at this point her right knee pain is more bothersome than is her left. She states that her right knee will give out several times a day. She has done physical therapy which aggravated her symptoms. She has also tried Tylenol and anti-inflammatory medicines which gave her minimal relief. She has had injections in the past which gave her temporary relief. The patient also states that her mother has rheumatoid arthritis and lupus. Allergies No Known Allergies [No Known Allergies*] Allergy (Verified 06/05/23 11:37) Medication List - Last Reconciled 06/05/23 by Rahul Spain MD aspirin 2 tabs PO DAILY ferrous sulfate 325 mg PO DAILY prenat.vits,guillermo,yvw-[id number] 1 tab PO BEDTIME PFS Medical History Cystic breast Encounter for cholecystectomy Morbid obesity with BMI of 40.0-44.9, adult Obesity Surgical History History of removal of cyst Family History Mother HTN (hypertension) Lupus (systemic lupus erythematosus) Maternal Grandmother No problems noted. Father HTN (hypertension) CVA (cerebral vascular accident) Social History (Updated 06/05/23 @ 11:38 by ANGIE Mosquera) Household Members: Children Alcohol intake: never Patient Tobacco Use Status: Never used Tobacco Current occupational status: unemployed Current occupation: left hand Gender identity: Female Female Reproductive History Menstrual Age of Menarche: 9 Physical Exam Vital Signs: BMI result Body Mass Index 43.3 Const Other: Well-nourished well-developed very friendly female awake alert and oriented x3 in no acute distress Extrem Other: Bilateral lower extremity examination shows good capillary refill, no skin lesions noted, normal sensation light touch Bilateral knee examination shows minimal effusions, mild crepitus with range of motion, tenderness along her medial joint lines, positive Devin's test, no instability Results Reviewed Results Reviewed: X-rays of the patient's bilateral knees taken today show mild diffuse joint space narrowing, no acute bony abnormalities Assessment & Plan Assessment & Plan (1) Tear of medial meniscus of right knee: Code(s): S83.241A - Other tear of medial meniscus, current injury, right knee, initial encounter Plan: Ms. Hernandez presents with bilateral knee pains and mechanical symptoms, right greater than left, due to possible tearing of her medial menisci. Thus, I will send the patient for an MRI of her right knee for further evaluation. I will see her back once the MRI is completed to discuss the findings and treatment options. I will also send her for blood work because of her family history of rheumatoid arthritis and systemic lupus erythematous. The patient will follow- up as instructed. Feel free to call me at any time should questions regarding her orthopedic management arise. Thank you very much for asking me to see this very friendly patient. I spent 22 minutes in reviewing the patient's records and imaging studies, seeing the patient and documenting in the medical record. (2) Family history of rheumatoid arthritis: Code(s): Z82.61 - Family history of arthritis (3) Right knee pain: Code(s): M25.561 - Pain in right knee (4) Left knee pain: Code(s): M25.562 - Pain in left knee Orders: Orders XR knee LT 3V Today M25.562 - Pain in left knee XR knee RT 3V Today M25.561 - Pain in right knee MR knee RT wo con Today S83.241A - Other tear of medial meniscus, current injury, right knee, initial encounter Rheumatoid Factor Today M25.561 - Pain in right knee, Z82.61 - Family history of arthritis Uric Acid Today M25.561 - Pain in right knee, Z82.61 - Family history of arthritis Complete Blood Count Auto Diff Today M25.561 - Pain in right knee, Z82.61 - Family history of arthritis Erythrocyte Sedimentation Rate Today M25.561 - Pain in right knee, Z82.61 - Family history of arthritis CHERYLE Reflex Titer and Pattern Today M25.561 - Pain in right knee, M25.562 - Pain in left knee, Z82.61 - Family history of arthritis Coding Level of Care Code New Pt Level 2 (84776) Diagnoses Tear of medial meniscus of right knee S83.241A Family history of rheumatoid arthritis Z82.61 Right knee pain M25.561 Left knee pain M25.562
[2023-06-05 11:17] VITALS: BMI 43.3
== END 2023-06-05 12:12 | disposition home or self-care (01) ==
PROVIDERS: PCP Hospitalist; Visit Provider Orthopaedic Surgery
DX: S83.241A Other tear of medial meniscus, current injury, right knee, initial encounter (principal); Z82.61 Family history of arthritis; M25.561 Pain in right knee; M25.562 Pain in left knee
CPT/HCPCS: 99202

== ENCOUNTER 2023-09-04 08:50 | Outpatient (AMB) | payer OTHER, SELFPAY ==
[2023-09-04 08:52] VITALS: BP 118/64; PULSE 137; TEMP 36.4; O2SAT 97; BMI 37.9
--- NOTE | 2023-09-04 08:52 | A.OFFVIS_ITS ---
Intake Vital Signs 09/04/23 08:52 Height 5 ft 5 in Weight 227 lb 8.273 oz BMI 37.9 BP 118/64 Blood Pressure Location Rt brachial Position Sitting Pulse 137 H Pulse Source Pulse Oximeter Temp 97.6 F Temp Source Skin Pulse Oximetry (%) 97 Intake Visit Reasons: Joint Pain Intake Note: New pt presents for consult. 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 The condition started back in March of 2023 when patient started noticing bilateral knee pain especially with going up the stairs. Difficulty with straightening and bending the knee all the way. She mentions intermittent bilateral knee swelling. She does recall an injury to the knee but this happened after her symptoms had started. She fell face forward. She states that soon after delivery she was having bilateral thumb pain but that seems to have resolved. She denies any other joint pain or swelling currently. Patient does not take any medications for the pain. Mood does not like medicines. Denies any fevers, weight loss, rashes, chills. States that her mother has rheumatoid arthritis and her maternal grandmother has rheumatoid arthritis. Patient has been having symptoms of a mild respiratory infection these days. [facility] Medical History (Updated 09/04/23 @ 09:30 by Lissa Mendes MD) Encounter for testing for latent tuberculosis infection Screening for viral disease Morbid obesity with BMI of 40.0-44.9, adult Obesity Cystic breast Encounter for cholecystectomy Surgical History History of removal of cyst Family History Mother HTN (hypertension) Lupus (systemic lupus erythematosus) Maternal Grandmother No problems noted. Father HTN (hypertension) CVA (cerebral vascular accident) Social History Household Members: Children Alcohol intake: never Patient Tobacco Use Status: Never used Tobacco Substance Use Type: Marijuana Current occupational status: unemployed Current occupation: left hand Gender identity: Female Female Reproductive History Menstrual Age of Menarche: 9 Review of Systems Const Reports fatigue and Reports weakness Card Reports chest pain Musc Reports arthralgias and Reports joint swelling Neuro Reports weakness Psych Reports anxiety Endo Reports fatigue Physical Exam Vital Signs: Last Vital Signs Temp 97.6 F 09/04/23 08:52 Pulse 137 H 09/04/23 08:52 BP 118/64 09/04/23 08:52 Pulse Ox 97 09/04/23 08:52 BMI result Body Mass Index 37.9 Const General: cooperative, healthy appearing and comfortable Nutritional Appearance: obese morbidly obese Orientation/consciousness: patient oriented x3 Limitations: no limitations HEENT Head: Yes normocephalic and Yes atraumatic Mouth: moist mucous membranes Resp Effort & Inspection: normal respiratory effort and able to speak in complete sentences Skin General skin exam: no rashes or lesions noted Neuro General: patient oriented x3 Extrem Other: No active synovitis in both hands and wrists Normal range of motion of both elbows and shoulders Right knee warmth, minimal bilateral knee swelling and pain with full extension No ankle swelling or tenderness bilaterally Negative MTP tenderness and negative MTP squeeze test bilaterally Assessment & Plan Assessment & Plan (1) Right knee pain: Code(s): M25.561 - Pain in right knee Qualifiers: Chronicity: chronic Qualified Code(s): M25.561 - Pain in right knee; G89.29 - Other chronic pain (2) Left knee pain: Code(s): M25.562 - Pain in left knee Qualifiers: Chronicity: chronic Qualified Code(s): M25.562 - Pain in left knee; G89.29 - Other chronic pain Plan: This is a 23-year-old female who presents for evaluation of bilateral knee pain , worse with activity since March of 2023. Minimal swelling on exam. She has a strong family history of rheumatoid arthritis. Labs showed positive rheumatoid factor. Will check an anti CCP antibody and additional labs. An MRI of the knee was ordered by Orthopedics to evaluate for meniscal tear. Follow-up in 3 weeks Plan I spent 46 minutes reviewing patient's chart, evaluating patient, ordering diagnostic workup, counseling patient and documenting in the chart Orders: Orders Complete Blood Count Auto Diff Today M25.561 - Pain in right knee, M25.562 - Pain in left knee Erythrocyte Sedimentation Rate Today M25.561 - Pain in right knee, M25.562 - Pain in left knee Immunofixation Pnl, Serum Today M25.561 - Pain in right knee, M25.562 - Pain in left knee Hepatitis A,B,C Profile Today Z11.59 - Encounter for screening for other viral diseases Comprehensive Met. Panel Today M25.561 - Pain in right knee, M25.562 - Pain in left knee C Reactive Protein Today M25.561 - Pain in right knee, M25.562 - Pain in left knee Protein Electrophoresis, Serum Today M25.561 - Pain in right knee, M25.562 - Pain in left knee T Spot TB Today Z11.7 - Encounter for testing for latent tuberculosis infection Cyclic Citrullinated Peptide Today M25.561 - Pain in right knee, M25.562 - Pain in left knee Coding Level of Care Code New Pt Level 4 (71123) Diagnoses Chronic pain of right knee M25.561; G89.29 Chronicity: chronic Chronic pain of left knee M25.562; G89.29 Chronicity: chronic
== END 2023-09-04 09:25 | disposition home or self-care (01) ==
PROVIDERS: PCP Hospitalist; Visit Provider Student in an Organized Health Care Education/Training Program
DX: M25.561 Pain in right knee (principal); G89.29 Other chronic pain; M25.562 Pain in left knee
CPT/HCPCS: 99204

== ENCOUNTER → 2023-09-04 08:50 | Outpatient (BNVA) | payer OTHER, SELFPAY | PROVIDERS: PCP Hospitalist; Visit Provider Student in an Organized Health Care Education/Training Program ==

== ENCOUNTER 2023-10-14 18:16 | Outpatient (REF) | payer OTHER, SELFPAY ==
--- NOTE | ~2023-10-14 | MR_ITS ---
EXAMINATION: MR KNEE WITHOUT CONTRAST, RIGHT CLINICAL INFORMATION: Right knee pain. Evaluate for a meniscal tear. COMPARISON: Right knee radiographs dated 06/05/2023. TECHNIQUE: MRI of the knee without contrast was performed using routine sequences on a high-field scanner. FINDINGS: MENISCI: Medial Meniscus: Intact Lateral Meniscus: Longitudinal tear through the central aspect of the anterior horn contacting both the femoral and tibial articular surfaces with extension to the anterior root insertion. LIGAMENTS: Cruciate: Intact Collateral: Intact EXTENSOR MECHANISM: Intact quadriceps and patellar tendons. Normal patellofemoral alignment. ARTICULAR CARTILAGE/BONE: Patellofemoral Compartment: Lateral patellar facet articular cartilage signal heterogeneity with areas of full-thickness loss measuring up to 1.1 cm in ML dimension where there is mild underlying subchondral cystic change. Tiny marginal osteophytes. Medial Compartment: Intact articular cartilage. Lateral Compartment: Intact articular cartilage. JOINT FLUID AND BURSAE: Small joint effusion. MR/MR knee RT wo con IMPRESSION: 1. Longitudinal tear through the central aspect of the lateral meniscus anterior horn contacting both the femoral and tibial articular surfaces with extension to the anterior root insertion. 2. Mild patellofemoral osteoarthritis. Small joint effusion.
== END 2023-10-14 18:17 | disposition home or self-care (01) ==
LOC: HO.MRI 18:16
PROVIDERS: PCP Hospitalist; Visit Provider Orthopaedic Surgery
DX: S83.241A Other tear of medial meniscus, current injury, right knee, initial encounter (principal)
CPT/HCPCS: 73721

== ENCOUNTER 2023-10-22 08:46 | Outpatient (REF) | payer OTHER, SELFPAY ==
[2023-10-22 09:17] LABS: MANUAL DIFF FLAG NO
[2023-10-22 10:06] LABS: Basophils Absolute Auto 0.1 X10*3/uL (0.0-0.2); Basophils Percent Auto 0.9 % (0-2); Eosinophils Absolute Auto 0.3 X10*3/uL (0.0-0.4); Eosinophils Percent Auto 4.1 % (0-4); Hematocrit 36.3 % (37.0-47.0); Hemoglobin 11.9 g/dl (12.0-16.0); Imm Gran Abs Auto 0.02 X10*3/uL (0.00-0.03); Imm Gran Pct Auto 0.3 % (0.0-0.4); Lymphocytes Absolute Auto 1.4 X10*3/uL (1.2-4.9); Lymphocytes Percent Auto 19.4 % (20-40); Mean Corpuscular HGB Conc 32.8 g/dl (31.0-35.0); Mean Corpuscular Hemoglobin 29.9 pg (27.0-33.0); Mean Corpuscular Volume 91.2 fL (80.0-98.0); Mean Platelet Volume 13.1 fL (9.4-12.3); Monocytes Absolute Auto 0.4 X10*3/uL (0.1-1.2); Monocytes Percent Auto 5.8 % (2-11); Neutrophils Absolute Auto 4.9 x10*3/uL (2.0-8.3); Neutrophils Percent Auto 69.5 % (45-73); Platelet Count 159 X10*3/uL (160-400); Red Blood Count 3.98 X10*6/uL (4.20-5.50); Red Cell Distribution Width 13.4 % (11.0-16.0); White Blood Count 7.1 X10*3/uL (4.8-10.8)
[2023-10-22 10:35] LABS: Alanine Aminotransferase 16 U/L (0-31); Albumin Level 4.4 g/dL (3.5-5.0); Alkaline Phosphatase 93 U/L (39-117); Anion Gap 10 (12-20); Aspartate Amino Transferase 15 U/L (5-31); Bilirubin Total 0.5 mg/dL (0.0-1.0); Blood Urea Nitrogen 11 mg/dL (9-16); C Reactive Protein 0.71 mg/dL (< or = 0.50); Calcium 9.4 mg/dL (8.4-10.2); Carbon Dioxide 22 mmol/L (22-29); Chloride 110 mmol/L (96-108); Estimated Glomerular Filt Rate > 60; Glucose Random 88 mg/dL (60-115); Potassium 3.4 mmol/L (3.3-5.1); Sodium 139 mmol/L (135-145); Total Protein 7.3 g/dL (6.5-8.0)
[2023-10-22 10:53] LABS: HBS Num1 0.65 mIU/mL (0-7.99); HBc Num1 0.26 S/CO (0.00-0.79); Hepatitis A Antibody IgM 0.25 Index (0-0.79); Hepatitis B Core Antibody Nonreactive (Nonreactive); Hepatitis B Surface Antigen Negative (Negative); ~Hepatitis A Antibody IgM Nonreactive (Nonreactive); ~Hepatitis B Surface Antibody NONREACTIVE (Nonreactive); ~Hepatitis C Antibody Nonreactive (Nonreactive)
[2023-10-22 10:58] LABS: Erythrocyte Sedimentation Rate 13 MM/HR (0-20)
[2023-10-25 08:08] LABS: TS Negative Control Passed; TS Panel A 0; TS Panel B 0; TS Positive Control Passed; TSpotTB Negative (Negative)
[2023-10-26 13:08] LABS: Cyclic Citrullinated Peptide <16 UNITS
[2023-10-26 20:44] LABS: Prot Elec - Albumin 4.2 g/dL (3.8-4.8); Prot Elec - Alpha1 0.3 g/dL (0.2-0.3); Prot Elec - Alpha2 0.7 g/dL (0.5-0.9); Prot Elec - Beta 1 0.4 g/dL (0.4-0.6); Prot Elec - Beta 2 0.4 g/dL (0.2-0.5)
[2023-10-28 13:19] LABS: IgA 161 mg/dL (47-310); IgG 1068 mg/dL (600-1640); IgM 139 mg/dL (50-300)
== END 2023-10-22 08:47 | disposition home or self-care (01) ==
LOC: HO.LAB 08:46
PROVIDERS: PCP Hospitalist; Visit Provider Student in an Organized Health Care Education/Training Program
DX: M25.561 Pain in right knee (principal); M25.562 Pain in left knee; Z11.7 Encounter for testing for latent tuberculosis infection; Z11.59 Encounter for screening for other viral diseases; Z72.89 Other problems related to lifestyle
CPT/HCPCS: 36415; 80053; 82784; 84165; 85025; 85652; 86140; 86200; 86334; 86481; 86704; 86706; 86709; 86803; 87340

== ENCOUNTER 2023-11-18 10:35 | Outpatient (AMB) | payer OTHER, SELFPAY ==
[2023-11-18 10:38] VITALS: BP 108/60; PULSE 96; TEMP 36.1; O2SAT 98; BMI 36.1
--- NOTE | 2023-11-18 10:38 | MHC.OFFVIS ---
Intake Vital Signs 11/18/23 10:38 Height 5 ft 5 in Weight 216 lb 14.958 oz BMI 36.1 BP 108/60 Blood Pressure Location Rt brachial Pulse 96 Pulse Source Pulse Oximeter Temp 96.9 F Temp Source Skin Pulse Oximetry (%) 98 Intake Visit Reasons: RA Intake Note: Pt last seen 09/04/23, presents today for follow up and test results. C/o bl knee pain when doing stairs, to the point she almost fell on occasions. 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 Continues to feel about the same Initial history: This is a 23-year-old female who presents for evaluation of bilateral knee pain. The condition started back in March of 2023 when patient started noticing bilateral knee pain especially with going up the stairs. Difficulty with straightening and bending the knee all the way. She mentions intermittent bilateral knee swelling. She does recall an injury to the knee but this happened after her symptoms had started. She fell face forward. She states that soon after delivery she was having bilateral thumb pain but that seems to have resolved. She denies any other joint pain or swelling currently. Patient does not take any medications for the pain. Mood does not like medicines. Denies any fevers, weight loss, rashes, chills. States that her mother has rheumatoid arthritis and her maternal grandmother has rheumatoid arthritis. Patient has been having symptoms of a mild respiratory infection these days. [facility] Medical History (Updated 11/18/23 @ 11:02 by Lissa Mendes MD) Morbid obesity with BMI of 40.0-44.9, adult Obesity Cystic breast Encounter for cholecystectomy Surgical History History of removal of cyst Family History Mother HTN (hypertension) Lupus (systemic lupus erythematosus) Maternal Grandmother No problems noted. Father HTN (hypertension) CVA (cerebral vascular accident) Social History Household Members: Children Alcohol intake: never Patient Tobacco Use Status: Never used Tobacco Substance Use Type: Marijuana Current occupational status: unemployed Current occupation: left hand Gender identity: Female Female Reproductive History Menstrual Age of Menarche: 9 Review of Systems [facility] [place] arthralgias and Reports joint swelling Physical Exam Vital Signs: Last Vital Signs Temp 96.9 F 11/18/23 10:38 Pulse 96 11/18/23 10:38 BP 108/60 11/18/23 10:38 Pulse Ox 98 11/18/23 10:38 BMI result Body Mass Index 36.1 Const General: cooperative, healthy appearing and comfortable Nutritional Appearance: obese morbidly obese Orientation/consciousness: patient oriented x3 Limitations: no limitations HEENT Head: Yes normocephalic and Yes atraumatic Mouth: moist mucous membranes Resp Effort & Inspection: normal respiratory effort and able to speak in complete sentences Skin General skin exam: no rashes or lesions noted Neuro General: patient oriented x3 Extrem Other: No active synovitis in both hands and wrists Normal range of motion of both elbows and shoulders Bilateral Genu Valgus Right knee warmth, minimal bilateral knee swelling and pain with full extension No ankle swelling or tenderness bilaterally Negative MTP tenderness and negative MTP squeeze test bilaterally Assessment & Plan Assessment & Plan (1) Right knee pain: Code(s): M25.561 - Pain in right knee Qualifiers: Chronicity: chronic Qualified Code(s): M25.561 - Pain in right knee; G89.29 - Other chronic pain (2) Left knee pain: Code(s): M25.562 - Pain in left knee Qualifiers: Chronicity: chronic Qualified Code(s): M25.562 - Pain in left knee; G89.29 - Other chronic pain Plan: This is a 23-year-old female who presents for evaluation of bilateral knee pain , worse with activity since March of 2023. Minimal swelling on exam. She has a strong family history of rheumatoid arthritis. Labs showed low positive rheumatoid factor. Right knee MRI showed lateral meniscus tear. Her labs otherwise showed negative CCP and borderline elevated CRP which is nonspecific( can be normal for her weight) At this point I do not see any signs of an autoimmune rheumatic disease. Patient has obesity and bilateral knee genu valgus, her knee pain is likely degenerative and mechanical in nature. Discussed symptoms and signs are suggestive of rheumatoid arthritis for which she will return for re-evaluation. Follow-up with orthopedics Follow-up in 3 weeks (3) Tear of medial meniscus of right knee: Code(s): S83.241A - Other tear of medial meniscus, current injury, right knee, initial encounter Qualifiers: Tear current or old: current Encounter type: initial encounter Meniscus tear of knee type: unspecified type Qualified Code(s): S83.241A - Other tear of medial meniscus, current injury, right knee, initial encounter Plan: Follow-up with orthopedics Plan I spent 16 minutes reviewing patient's chart, evaluating patien, counseling patient and documenting in the chart Coding Level of Care Code Est Pt Level 3 (89736) Diagnoses Chronic pain of right knee M25.561; G89.29 Chronicity: chronic Chronic pain of left knee M25.562; G89.29 Chronicity: chronic Tear of medial meniscus of right knee, current, unspecified tear type, initial encounter S83.241A Tear current or old: current Encounter type: initial encounter Meniscus tear of knee type: unspecified type
== END 2023-11-18 11:01 | disposition home or self-care (01) ==
PROVIDERS: PCP Hospitalist; Visit Provider Student in an Organized Health Care Education/Training Program
DX: M25.561 Pain in right knee (principal); G89.29 Other chronic pain; M25.562 Pain in left knee; S83.241A Other tear of medial meniscus, current injury, right knee, initial encounter
CPT/HCPCS: 99213

== ENCOUNTER → 2023-11-18 10:35 | Outpatient (BNVA) | payer OTHER, SELFPAY | PROVIDERS: PCP Hospitalist; Visit Provider Student in an Organized Health Care Education/Training Program | DX: M25.561 Pain in right knee (principal); M25.562 Pain in left knee; S83.241D Other tear of medial meniscus, current injury, right knee, subsequent encounter; G89.29 Other chronic pain | CPT/HCPCS: 99212 ==

== ENCOUNTER 2025-09-20 08:13 | Outpatient (AMB) | payer OTHER, SELFPAY ==
--- NOTE | 2025-09-20 12:05 | MHC.OFFVISWM ---
VS Expanded 09/20/25 12:15 Height 5 ft 5 in Weight 220 lb BMI 36.6 Body Fat % 42.2 Body Fat Mass 92.8 Fat Free Mass 127 Visceral Fat Rating 9 Body Water % 41.5 Body Water Mass 91.2 Basal Metabolic Rate/Score 1,805 Intake Visit Reasons: [employer] SWL/MWL BMI 36.6 Allergies No Known Allergies (No Known Allergies*) Allergy (Verified 09/20/25 12:05) Medication List - Last Reconciled 09/20/25 by Bennett Recio MD No Known Home Meds HPI HPI [employer] SWL/MWL BMI 36.6: Details: Start time: 12pm, End time: 12.30pm ?I spent 15 minutes speaking with the patient on the phone plus an additional 5 minutes reviewing and updating records for a total of 20 minutes HPI Comments Details: Previous weight loss efforts: fasting Wakes up: 5am, Sleeps: 11pm Breakfast: skips Lunch: 1pm (rice, chicken) Dinner: skips Snacks: one snack before lunch (chips), one snack after dinner (chips, cream and cheese, hunny bun) Exercise: none Beverages: Coffee/Tea: none, Soda: Regular Coke daily, Juice: Apple juice daily, ETOH: 2/month [facility] Medical History (Updated 09/20/25 @ 12:26 by Bennett Recio MD) Knee pain Anxiety Depression PTSD (post-traumatic stress disorder) BMI 36.0-36.9,adult Morbid obesity with BMI of 40.0-44.9, adult Obesity Cystic breast Encounter for cholecystectomy Surgical History History of removal of cyst Family History Mother HTN (hypertension) Lupus (systemic lupus erythematosus) Maternal Grandmother No problems noted. Father HTN (hypertension) CVA (cerebral vascular accident) Social History Household Members: Children Alcohol intake: never Patient Tobacco Use Status: Never used Tobacco Substance Use Type: Marijuana Current occupational status: unemployed Current occupation: left hand Gender identity: Female Female Reproductive History Menstrual Age of Menarche: 9 Physical Exam Vital Signs: BMI result Body Mass Index 36.6 Telehealth Telehealth Telehealth Platform: Telephone Location of provider rendering services: practice address Location of patient: address on file Patient Identification confirmed using: Name, : Yes Telehealth method: voice only Patient verbally consented to treatment: Yes Patient verbally consented to billing insurance company: Yes Patient informed of any privacy concerns related to visit: Yes Minutes spent on Phone/Video with Pt.: 30 Assessment & Plan Assessment & Plan (1) Obesity: Code(s): E66.9 - Obesity, unspecified Category: Medical Qualifiers: Obesity type: due to excess calories Obesity classification: adult class 2 (BMI 35 - 39.9) Serious obesity comorbidity presence: without serious comorbidity Body mass index: BMI 36.0-36.9 Qualified Code(s): E66.09 - Other obesity due to excess calories; Z68.36 - Body mass index [BMI] 36.0-36.9, adult Plan: 1. As we discussed, based on your present BMI you are approximately 70lbs overweight. In my opinion, for any weight loss strategy to be successful should have a high probability to help you lose at least 65lbs out of 70lbs of the extra weight you carry. We discussed in detail the available therapeutic options: 1) our lifestyle intervention program that has an average weight loss of 10% in 3 months.?Some patients continue it for longer and have lost over 50lbs but this is not common. Our lifestyle program can be provided by me. I will provide you with a link to use the bruce if you choose to do so. We use protein shakes and protein bars to replace some of the meals of the day and cover your appetite better. We will decide together the exact combination. 2) Weight loss medications: these can be used in conjunction with our lifestyle program or you may choose to use them without following a lifestyle program from my program but your own. As we discussed, your insurance does not cover weight loss medications unless you have diabetes. One slef pay option is the Phentermine pill. It is well tolerated and most common side effects include blood pressure elevation, dry mouth, difficulty sleeping and heart palpitations. We also discussed that you can self pay for the weight loss injections and the cost is $249 for the first month and $499 for any other month thereafter. These payments go to the drug company directly and not to us. As we discussed, this is not a terminal supervisor solution, as most patients put all the weight back once they are off the medication. 3) We also discussed about the lap sleeve gastrectomy. In my opinion this is the best option to solve your problem based on your situation and should be used in conjunction with the two previous options. A good strategy to make this decision to proceed with surgery, as soon as you achieve a specific goal with the lifestyle intervention and medication options: to lose least 10% of your initial weight in 3 months. ?I emphasized the importance of close follow-up, adherence to instructions and good communication. The surgery does not replace the need to change your lifestlyle which is the cause of the obesity problem. The surgery provides the motivation to try again to change your lifestyle, it reduces the appetite and make the transition to a better lifestyle easier and doubles the amount of weight you would lose compared to doing the lifestyle change without the surgery. You will need to be on a liquid diet with protein shakes for 2 weeks before surgery to maximize weight loss and boost your nutritional status to recover better from surgery and also for the first two weeks after surgery to let the stomach heal before we introduce other foods. After the first 2 weeks we will introduce protein bars and soft foods like scrambled eggs, cottage cheese and yogurt and after the 6th week will introduce meat, fish and cooked vegetables in small amounts. Over time you should be able to eat everything in small amounts. Side effects like nausea, vomiting, heartburn or abdominal pain are not common in the practice unless you are not following in the practice. This operation requires lifetime commitment to following in our practice and communication with me. You will much less weight and experience side effects if you don?t communicate or not following in the practice. Complications are rare and in our practice is about 1/10 of the national average.
[2025-09-20 12:15] VITALS: BMI 36.6
== END 2025-09-20 12:30 | disposition home or self-care (01) ==
LOC: HO.HBS 08:13
PROVIDERS: Visit Provider Surgery
DX: E66.812 Obesity, class 2 (principal); Z68.36 Body mass index [BMI] 36.0-36.9, adult
CPT/HCPCS: 99203